=== PATIENT | female | born 1980 | race Two or more races ===

== ENCOUNTER → 2020-04-02 | Outpatient (CLI) | payer OTHER | END | disposition home or self-care (01) | LOC: LAB 14:23 | PROVIDERS: ATTEND Physician Assistant | DX: Z20.828 Contact with and (suspected) exposure to other viral communicable diseases (principal) ==

== ENCOUNTER 2020-08-13 13:54 | Emergency (ER) | payer OTHER ==
[~2020-08-13] VITALS: Ht 154.9 cm; Wt 72.6 kg
[2020-08-13 15:35] VITALS: BP 143/77
== END 2020-08-13 15:37 | disposition home or self-care (01) ==
LOC: ER 13:54
DX: O20.0 Threatened abortion (principal)
CPT/HCPCS: 76801

== ENCOUNTER 2020-09-18 17:22 | Emergency (ER) | payer OTHER ==
[~2020-09-18] VITALS: Ht 30.5 cm; Wt 0.5 kg
[2020-09-18 18:52] LABS: Basophils # (auto) 0 10 ^3/uL (0-0.2); Basophils % (auto) 0.5 % (0.0-2.0); Eosinophils # (auto) 0.1 10 ^3/uL (0-0.8); Eosinophils % (auto) 0.8 % (0.0-7.0); Hematocrit 32.4 % (36.0-46.0); Hemoglobin 11.4 g/dL (12.2-16.2); Lymphocytes # (auto) 1.5 10 ^3/uL (0.4-5.4); Lymphocytes % (auto) 23.2 % (10.0-50.0); Mean Corpuscular Hemoglobin 30.9 pg (28.0-32.0); Mean Corpuscular Hgb Conc. 35.1 g/dL (32.0-36.0); Monocytes # (auto) 0.4 10 ^3/uL (0-1.3); Monocytes % (auto) 6.8 % (0.0-12.0); Neutrophils # (auto) 4.4 10 ^3/uL (1.6-8.6); Neutrophils % (auto) 68.7 % (37.0-80.0); Platelet Count (auto) 252 10^3/uL (140-450); Red Blood Cells 3.68 10^6/uL (4.0-5.20); Red Cell Distribution Width 13.1 % (11.8-14.3); White Blood Cell 6.4 10^3/uL (4.4-10.8)
[2020-09-18 18:52] LABS: Urine Bacteria FEW /hpf (None Seen); Urine Blood 3+ /uL (Negative); Urine Specific Gravity 1.008 (1.001-1.035); Urine WBC 26 /hpf (0 - 5)
[2020-09-18 19:03] LABS: Albumin 3.3 g/dL (3.4-5.0); Calcium 8.9 mg/dL (8.5-10.1); Potassium 3.6 mmol/L (3.5-5.1)
[2020-09-18 19:06] LABS: BUN/Creatinine Ratio 15.4; Bilirubin, Total 0.2 mg/dL (0.2-1.0); Total Protein 7.5 g/dL (6.4-8.2)
[2020-09-18 19:07] LABS: INR 0.94 (0.9-1.15)
[2020-09-18] MEDS ORDERED: cefTRIAXone SOD 1,000 MG VL IM ONE (19:15)
[2020-09-18 20:36] VITALS: BP 116/54
== END 2020-09-18 20:37 | disposition home or self-care (01) ==
LOC: ER 17:22
DX: O36.4XX0 Maternal care for intrauterine death, not applicable or unspecified (principal); O23.41 Unspecified infection of urinary tract in pregnancy, first trimester; Z3A.01 Less than 8 weeks gestation of pregnancy
CPT/HCPCS: 36415; 76801; 76817; 80053; 81001; 84702; 85025; 85610; 85730; 96372; 99284; J0696